=== PATIENT | female | born 1965 | race Caucasian/White ===

== ENCOUNTER 2020-11-27 12:28 | Emergency (ER) | payer BC ==
--- OUTSIDE RECORDS SUMMARY | 2020-11-27 12:32 | XMS REPORT | Continuity of Care Document ---
:1965 Author Organization [facility] t Address [address] [place] [address] Care Team Providers Name Role Phone Lab, Fam Pob I Attending Clinician Unavailable Doctor Unassigned, Name Attending Clinician Unavailable SASSARD Attending Clinician Unavailable Payers Payer Name Policy Type Policy Number Effective Date Expiration Date S ource Problems This patient has no known problems. Allergies, Adverse Reactions, Alerts Allergy Allergy Status Severity Reaction(s) Onset Inactive Treating Comm ents Source Name Type Date Date Clinician Penicill DA Active U 2017-05 [facility] ins 07-07 [place] 00:00: [facility] 00 [facility] Medications This patient has no known medications. Procedures This patient has no known procedures. Encounters Start End Encounter Admission Attending Care Care Encounter Source Date/Time Date/Time Type Type Clinicians Facility Department ID 2020-03-05 2020-03-05 Laboratory Lab, Adc [facility] [id number] 10:47:02 11:07:02 Only Fam Pob I Health [id number] [place] [id number] Professio [id number] nal [address] 2020-03-05 2020-03-05 Letter Doctor ANGELA [id number] 00:00:00 00:00:00 (Out) Unassigned, LISA [id number] [facility] [id number] 2019-12-02 2019-12-02 Outpatient [facility] [id number] [place] 00:00:00 00:00:00 EDUARDO [address] 2019-11-07 2019-11-07 Outpatient [facility] [id number] 00:00:00 00:00:00 EDUARDO [address] 2019-10-28 2019-10-28 [facility] [id number] 00:00:00 00:00:00 EDUARDO [address] 2019-10-28 2019-10-28 Outpatient [facility] [id number] [place] 00:00:00 00:00:00 EDUARDO [address] 2019-10-28 2019-10-28 Outpatient [facility] [id number] [place] 00:00:00 00:00:00 EDUARDO [address] 2019-10-28 2019-10-28 Outpatient [facility] [id number] 00:00:00 00:00:00 EDUARDO [address] Results This patient has no known results.
[2020-11-27 13:36] LABS: Urine Blood Negative (Negative); Urine Glucose Negative (Negative); Urine Protein Negative (Negative)
[2020-11-27 14:26] LABS: Protime INR 0.97
[2020-11-27 14:39] LABS: Absolute Lymphocytes (CBC) 1.3 K/uL (0.7-4.9); Basophils % 0.5 % (0-1.3); Hematocrit 40.9 % (36.0-45.0); Lymphocytes % 21.7 % (15.3-44.8); MPV 7.5 fL (7.6-11.3); RBC Red Blood Cell Count 4.65 M/uL (3.86-4.86)
[2020-11-27 15:02] LABS: ALT/SGPT 30 U/L (12-78); AST/SGOT 21 U/L (15-37); Albumin 4.2 g/dL (3.4-5.0); Alkaline Phosphatase 106 U/L (45-117); BUN Blood Urea Nitrogen 14 mg/dL (7-18); Bicarbonate 30 mmol/L (21-32); Bilirubin Direct < 0.1 mg/dL (0-0.2); Bilirubin Total 0.3 mg/dL (0.2-1.0); Glucose Level 131 mg/dL (74-106); Magnesium 2.1 mg/dL (1.8-2.4); NT PRO-BNP 58 pg/mL (<125); Potassium 3.7 mmol/L (3.5-5.1); Protein, Total 8.3 g/dL (6.4-8.2); Sodium Level 137 mmol/L (136-145); Thyroid Stimulating Hormone 0.364 uIU/mL (0.360-3.740); Troponin (Emerg Dept Use Only) < 0.02 ng/mL (0.0-0.045)
--- NOTE | 2020-11-27 15:33 | RAD REPORT ---
EXAM DESCRIPTION: Molly Single View11/27/2020 2:38 pm CLINICAL HISTORY: Chest pain COMPARISON: none FINDINGS: The lungs appear clear of acute infiltrate. The heart is normal size IMPRESSION: No acute abnormalities displayed
--- NOTE | 2020-11-27 18:24 | EDPHYS ---
Physician Documentation [facility] Name: Silke Huggins Age: 55 yrs Sex: Female : 1965 Arrival Date: 11/27/2020 Time: 12:31 Bed 14 Private MD: Antionette Ramírez K ED Physician Guido Almazan HPI: 11/27 14:05 This 55 yrs old Female presents to ER via Ambulatory with complaints of Blood pm1 Pressure Problem, Nausea, Dizziness. 14:05 The patient presents with dizziness, hot flashes, left jaw pain, nausea, blood pressure pm1 elevation. Onset: The symptoms/episode began/occurred 2 week(s) ago. Context: Unknown. Patient post menopausal for about 1 year. Modifying factors: The symptoms are alleviated by nothing, the symptoms are aggravated by nothing. Associated signs and symptoms: Pertinent negatives: abdominal pain, chest pain, diaphoresis, near-syncope, numbness, shortness of breath, syncope, tingling, vomiting. Severity of symptoms: in the emergency department the symptoms have improved Pain is currently a 0 / 10. Patient's baseline: Neuro: alert and fully oriented, Motor: no deficits, Ambulation: walks without assistance, Speech: normal. 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 - Social history:: Smoking status: Patient denies any tobacco usage or history of. Patient uses street drugs, marijuana. ROS: 14:05 Constitutional: Negative for fever, chills, and weight loss. pm1 14:05 Neck: Negative for injury, pain, and swelling, Cardiovascular: Negative for chest pain, palpitations, and edema, Respiratory: Negative for shortness of breath, cough, wheezing, and pleuritic chest pain, Abdomen/GI: Negative for abdominal pain, nausea, vomiting, diarrhea, and constipation, Back: Negative for injury and pain, MS/Extremity: Negative for injury and deformity, Skin: Negative for injury, rash, and discoloration. 14:05 Neuro: Positive for dizziness, Negative for headache, numbness, syncope, near syncope, tingling, weakness. 14:05 All other systems are negative. Exam: 14:05 Constitutional: This is a well developed, well nourished patient who is awake, alert, pm1 and in no acute distress. Head/Face: Normocephalic, atraumatic. 14:05 Neck: Trachea midline, no thyromegaly or masses palpated, and no cervical lymphadenopathy. Supple, full range of motion without nuchal rigidity, or vertebral point tenderness. No Meningismus. 14:05 Chest/axilla: Normal chest wall appearance and motion. Nontender with no deformity. No lesions are appreciated. 14:05 Back: No spinal tenderness. No costovertebral tenderness. Full range of motion. Skin: Warm, dry with normal turgor. Normal color with no rashes, no lesions, and no evidence of cellulitis. MS/ Extremity: Pulses equal, no cyanosis. Neurovascular intact. Full, normal range of motion. 14:05 Eyes: Exam is negative for acute changes, Extraocular movements: no acute changes, Conjunctiva: no acute changes, no injection. 14:05 ENT: Exam is negative for acute changes, Mouth: Lips: normal, Oral mucosa: normal, pink and intact, moist. 14:05 Cardiovascular: Exam negative for acute changes, Rate: normal, Rhythm: regular, Pulses: no pulse deficits are appreciated, Heart sounds: normal, normal S1and S2. 14:05 Respiratory: Exam negative for acute changes, respiratory distress, shortness of breath, Breath sounds: are clear throughout. 14:05 Abdomen/GI: Inspection: abdomen appears normal, Palpation: abdomen is soft and non-tender, in all quadrants. 14:05 Neuro: Exam negative for acute changes, Orientation: is normal, Mentation: is normal, Motor: is normal, moves all fours, Sensation: is normal, no obvious gross deficits. Vital Signs: 13:03 BP 146 / 102; Pulse 86; Resp 18; Temp 98.2; Pulse Ox 100% on R/A; Weight 102.51 kg; ph Height 5 ft. 3 in. (160.02 cm); 13:38 BP 113 / 99; Pulse 84; Resp 17; Pulse Ox 98% on R/A; tw2 15:02 BP 122 / 87; Pulse 74; Resp 17; Pulse Ox 98% on R/A; tw2 16:29 BP 130 / 88; Pulse 75; Resp 17; Pulse Ox 98% on R/A; tw2 18:10 BP 128 / 91; Pulse 63; Resp 17; Pulse Ox 99% on R/A; tw2 13:03 Body Mass Index 40.03 (102.51 kg, 160.02 cm) ph MDM: 13:35 Patient medically screened. pm1 18:17 Data reviewed: vital signs. Data interpreted: Pulse oximetry: on room air is 99 %. pm1 Interpretation: normal. Counseling: I had a detailed discussion with the patient and/or guardian regarding: the historical points, exam findings, and any diagnostic results supporting the discharge/admit diagnosis, radiology results, the need for outpatient follow up, to return to the emergency department if symptoms worsen or persist or if there are any questions or concerns that arise at home. 11/27 13:35 Order name: Urine --Ancillary (enter results) nc 11/27 13:35 Order name: Urine Dipstick-Ancillary; Complete Time: 15:11 EDOR 11/27 13:47 Order name: Basic Metabolic Panel; Complete Time: 15:11 pm11/27 13:47 Order name: CBC with Diff; Complete Time: 15:11 pm1 11/27 13:47 Order name: LFT's; Complete Time: 15:11 pm11/27 13:47 Order name: Magnesium; Complete Time: 15:11 pm11/27 13:47 Order name: NT PRO-BNP; Complete Time: 15:11 pm11/27 13:47 Order name: PT-INR; Complete Time: 15:11 pm11/27 13:47 Order name: Troponin (emerg Dept Use Only); Complete Time: 15:11 pm11/27 13:47 Order name: XRAY Chest (1 view); Complete Time: 15:38 pm1 11/27 13:47 Order name: EKG; Complete Time: 13:47 pm11/27 13:47 Order name: Cardiac monitoring; Complete Time: 14:11 pm11/27 13:47 Order name: TSH; Complete Time: 15:11 pm11/27 17:46 Order name: Troponin (emerg Dept Use Only); Complete Time: 18:17 tw2 11/27 13:47 Order name: EKG - Nurse/Tech; Complete Time: 14:11 pm1 11/27 13:47 Order name: IV Saline Lock; Complete Time: 14:11 pm1 11/27 13:47 Order name: Labs collected and sent; Complete Time: 14:11 pm1 11/27 13:47 Order name: O2 Per Protocol; Complete Time: 13:48 pm1 11/27 13:47 Order name: O2 Sat Monitoring; Complete Time: 13:48 pm1 Administered Medications: No medications were administered Disposition: 11/28 07:08 Co-signature as Attending Physician, Guido Almazan MD I agree with the assessment and kdr plan of care. Disposition Summary: 11/27/20 18:23 Discharge Ordered Location: Home pm1 Problem: new pm1 Symptoms: have improved pm1 Condition: Stable pm1 Diagnosis - Jaw pain pm1 - Anorexia - decreased appetite pm1 - Dizziness and giddiness pm1 - Essential (primary) hypertension pm1 Followup: pm1 - With: Emergency Department - When: As needed - Reason: Worsening of condition Followup: pm1 - With: Private Physician - When: 2 - 3 days - Reason: Recheck today's complaints, Continuance of care, Re-evaluation by your physician Discharge Instructions: - Discharge Summary Sheet pm1 - Dizziness pm1 - Hypertension, Adult pm1 - How to Take Your Blood Pressure, [id number] pm1 - DASH Eating Plan pm1 - Managing Your Hypertension pm1 Forms: - Medication Reconciliation Form pm1 - Thank You Letter pm1 - Antibiotic Education pm1 - Prescription Opioid Use pm1 Signatures: Dispatcher [employer] EDGuido Roe MD MD [facility] Kim Kearney RN RN ph Dima Abdul, MEHDI MEDICAL INSTRUMENT CABLE FABRICATOR pm1 Corrections: (The following items were deleted from the chart) 11/27 13:10 13:09 Allergies: No Known Allergies; ph ph 18:43 14:05 The patient presents with dizziness, hot flashes, left jaw pain, nausea, pm1 pm1
--- NOTE | 2020-11-27 18:24 | ER ---
Nurse's Notes [facility] Name: Silke Huggins Age: 55 yrs Sex: Female : 1965 Arrival Date: 11/27/2020 Time: 12:31 Bed 14 Private MD: Antionette Ramírez K Diagnosis: Jaw pain;Anorexia-decreased appetite;Dizziness and giddiness;Essential (primary) hypertension Presentation: 11/27 13:03 Chief complaint: Patient states: Episodes of dizziness, L jaw discomfort, BP ph fluctuations, nausea, loss of appetite, been happening for " a few week", denies fever, V/D. Coronavirus screen: Client denies travel out of the [place] in the last 14 days. At this time, the client does not indicate any symptoms associated with coronavirus-19. Ebola Screen: No symptoms or risks identified at this time. Initial Sepsis Screen: Does the patient meet any 2 criteria? No. Patient's initial sepsis screen is negative. Does the patient have a suspected source of infection? No. Patient's initial sepsis screen is negative. Risk Assessment: Do you want to hurt yourself or someone else? Patient reports no desire to harm self or others. Onset of symptoms was November 27, 2020. 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 - Social history:: Smoking status: Patient denies any tobacco usage or history of. Patient uses street drugs, marijuana. Screenin:17 Abuse screen: Denies threats or abuse. Nutritional screening: No deficits noted. tw2 Tuberculosis screening: No symptoms or risk factors identified. Fall Risk None identified. Assessment: 13:20 General: Appears in no apparent distress. obese, well groomed, Behavior is calm, tw2 cooperative, appropriate for age. Pain: Complains of pain in left jaw. Neuro: Level of Consciousness is awake, alert, obeys commands, Oriented to person, place, time, situation. Cardiovascular: Capillary refill Patient's skin is warm and dry. Respiratory: Airway is patent Respiratory effort is even, unlabored, Respiratory pattern is regular, symmetrical. GI: Abdomen is round non-distended, obese, Reports nausea. : No signs and/or symptoms were reported regarding the genitourinary system. EENT: No signs and/or symptoms were reported regarding the EENT system. Derm: No signs and/or symptoms reported regarding the dermatologic system. Musculoskeletal: Range of motion: intact in all extremities. 13:37 Reassessment: provider at bedside at this time. tw2 15:02 Reassessment: Patient appears in no apparent distress at this time. No changes from tw2 previously documented assessment. Patient and/or family updated on plan of care and expected duration. Pain level reassessed. Patient is alert, oriented x 3, equal unlabored respirations, skin warm/dry/pink. 16:29 Reassessment: Patient appears in no apparent distress at this time. No changes from tw2 previously documented assessment. Patient and/or family updated on plan of care and expected duration. Pain level reassessed. Patient is alert, oriented x 3, equal unlabored respirations, skin warm/dry/pink. 18:10 Reassessment: Patient appears in no apparent distress at this time. No changes from tw2 previously documented assessment. Patient and/or family updated on plan of care and expected duration. Pain level reassessed. Patient is alert, oriented x 3, equal unlabored respirations, skin warm/dry/pink. 18:29 Reassessment: provider at bedside at this time going over results. tw2 18:44 Reassessment: Patient appears in no apparent distress at this time. No changes from tw2 previously documented assessment. Patient and/or family updated on plan of care and expected duration. Pain level reassessed. Patient is alert, oriented x 3, equal unlabored respirations, skin warm/dry/pink. Vital Signs: 13:03 BP 146 / 102; Pulse 86; Resp 18; Temp 98.2; Pulse Ox 100% on R/A; Weight 102.51 kg; ph Height 5 ft. 3 in. (160.02 cm); 13:38 BP 113 / 99; Pulse 84; Resp 17; Pulse Ox 98% on R/A; tw2 15:02 BP 122 / 87; Pulse 74; Resp 17; Pulse Ox 98% on R/A; tw2 16:29 BP 130 / 88; Pulse 75; Resp 17; Pulse Ox 98% on R/A; tw2 18:10 BP 128 / 91; Pulse 63; Resp 17; Pulse Ox 99% on R/A; tw2 13:03 Body Mass Index 40.03 (102.51 kg, 160.02 cm) ph ED Course: 12:31 Patient arrived in ED. mr 12:31 Antionette Ramírez MD is Private Physician. mr 13:09 Triage completed. ph 13:10 Arm band placed on Patient placed in an exam room. Antipyretics given from triage as ph ordered by an ER provider. Antipyretics given from triage as ordered by an ER provider. 13:11 Placed in gown. Bed in low position. Adult w/ patient. chemicals distiller on. Pulse ox on. tw2 NIBP on. 13:17 Destiny Baker RN is Primary Nurse. tw2 13:22 Dima Abdul NP is PHCP. pm1 13:22 Guido Almazan MD is Attending Physician. pm1 14:11 Inserted saline lock: 20 gauge in left antecubital area, using aseptic technique. Blood tw2 collected. 14:38 XRAY Chest (1 view) In Process Unspecified. EDMS 17:55 Troponin (emerg Dept Use Only) Sent. tw2 18:43 No provider procedures requiring assistance completed. IV discontinued, intact, tw2 bleeding controlled, No redness/swelling at site. Pressure dressing applied. Administered Medications: No medications were administered Outcome: 18:23 Discharge ordered by MD. pm1 18:43 Discharged to home ambulatory. tw2 18:43 Condition: stable 18:43 Discharge instructions given to patient, Instructed on discharge instructions, follow up and referral plans. Demonstrated understanding of instructions, follow-up care. 18:44 Patient left the ED. tw2 Signatures: Dispatcher [employer] EDMA ClemensJaquelin nick Kim Kearney RN RN ph Dima Abdul NP ASSISTANT PROFESSOR OF SPANISH pm1 Destiny Baker RN RN tw2 Corrections: (The following items were deleted from the chart) 13:09 13:03 Chief complaint: ph ph 13:10 13:09 Allergies: No Known Allergies; ph ph
[2020-11-27 19:05] VITALS: TEMP 98.2
[2020-11-27 19:12] VITALS: BP 128/91; O2SAT 99
--- NOTE | 2020-11-28 10:42 | EKG ---
Test Date: 2020-11-27 Test Time: 14:01:46 Rib Trim Separator: TANNA MEASUREMENT RESULTS: Intervals: Rate: 72 HI: 128 QRSD: 76 QT: 372 QTc: 407 [place]: P: 47 HI: 128 QRS: 54 T: 73 INTERPRETIVE STATEMENTS: Normal sinus rhythm Nonspecific ST abnormality Abnormal ECG Compared to ECG 04/11/1998 12:50:00 ST (T wave) deviation now present Electronically Signed On 11-28-20 10:41:44 CDT by Scott Barba
== END 2020-11-27 18:44 | disposition home or self-care (01) ==
LOC: ER 12:28
DX: R68.84 Jaw pain (principal); R63.0 Anorexia; I10 Essential (primary) hypertension; Z88.0 Allergy status to penicillin
CPT/HCPCS: 36415; 71045; 80048; 80076; 81003; 81025; 83735; 83880; 84443; 84484; 85025; 85610; 93005; 99284

== ENCOUNTER 2021-01-31 06:50 | Emergency (ER) | payer BC ==
--- NOTE | 2021-01-31 07:44 | RAD REPORT ---
EXAM DESCRIPTION: Molly Single View01/31/2021 7:38 am CLINICAL HISTORY: sob COMPARISON: November 2020 FINDINGS: The lungs appear clear of acute infiltrate. The heart is normal size IMPRESSION: No acute abnormalities displayed
--- NOTE | 2021-01-31 11:23 | ER ---
Nurse's Notes [facility] Name: Silke Huggins Age: 55 yrs Sex: Female : 1965 Arrival Date: 01/31/2021 Time: 06:51 Bed 10 Private MD: Diagnosis: Coronavirus infection, unspecified Presentation: 01/31 06:57 Chief complaint: Patient states: SOB x 2 days. Coronavirus screen: Vaccine status: df1 Patient reports being unvaccinated. Client denies travel out of the [place] in the last 14 days. Client presents with at least one sign or symptom that may indicate coronavirus-19. Standard/surgical mask placed on the client. The client reports previous COVID testing was negative. Date of collection: January 25, 2021. Ebola Screen: Patient negative for fever greater than or equal to 101.5 degrees Fahrenheit, and additional compatible Ebola Virus Disease symptoms. Initial Sepsis Screen: Does the patient meet any 2 criteria? No. Patient's initial sepsis screen is negative. Risk Assessment: Do you want to hurt yourself or someone else? Patient reports no desire to harm self or others. Onset of symptoms was January 29, 2021. 06:57 Method Of Arrival: Ambulatory df1 06:57 Acuity: CECILE 4 df1 07:03 Note Pt states SOB x 2 days. Neg covid on 01/25/21. Other family at home are positive df1 Covid. 07:16 Initial Sepsis Screen: Does the patient have a suspected source of infection? No. es2 Patient's initial sepsis screen is negative. Triage Assessment: 07:16 Respiratory: Onset: The symptoms/episode began/occurred 2 days ago, the patient has es2 mild shortness of breath. BARGE CAPTAIN: 07:18 5, Full Term 3, Premature 0, 2, Living 3, LMP 05/11/2019 es2 Historical: - Allergies: 07:00 PENICILLINS; df1 - Home Meds: 07:00 metoprolol tartrate 50 mg Oral tab 1 tab once daily [Active]; candesartan 32 mg oral df1 tab 1 tab once daily [Active]; - PMHx: 07:00 Hypertensive disorder; Hypothyroidism; df1 - PSHx: 07:00 section; Shoulder; df1 - Immunization history:: Adult Immunizations up to date, Client reports having NOT received the Covid vaccine. - Social history:: Smoking status: Patient denies any tobacco usage or history of. Patient/guardian denies using alcohol, street drugs. Screenin:15 Abuse screen: Denies threats or abuse. Denies injuries from another. Nutritional es2 screening: No deficits noted. Tuberculosis screening: No symptoms or risk factors identified. Fall Risk Gait- Normal/Bed Rest/Wheelchair (0 pts). Assessment: 07:12 Reassessment: Patient and/or family updated on plan of care and expected duration. Pain es2 level reassessed. Patient is alert, oriented x 3, equal unlabored respirations, skin warm/dry/pink. Pt states she has not be able to sleep for the past 2 nights. Feels like she can't breath. Checked O2 at home, was 89% on RA. Denies getting COVID vaccine. Reports diarrhea. General: Appears obese, well developed, well nourished, Behavior is calm, cooperative, appropriate for age. Pain: Denies pain. Neuro: Level of Consciousness is awake, alert, obeys commands, Oriented to person, place, time, situation, Appropriate for age Gait is steady, Speech is normal. Cardiovascular:. Respiratory: Airway is patent Respiratory effort is even, Respiratory pattern is regular, symmetrical. GI: Reports diarrhea. : No signs and/or symptoms were reported regarding the genitourinary system. EENT: No signs and/or symptoms were reported regarding the EENT system. Derm: Skin is intact. Musculoskeletal: No signs and/or symptoms reported regarding the musculoskeletal system. 07:18 Respiratory: Breath sounds are clear. es2 11:33 Cardiovascular: Rhythm is regular. es2 Vital Signs: 06:57 BP 115 / 88; Pulse 85; Resp 20; Temp 97.9; Pulse Ox 100% on R/A; Weight 101.6 kg; df1 Height 5 ft. 4 in. (162.56 cm); Pain 0/10; 07:15 BP 113 / 101; Pulse 84; Resp 20; Pulse Ox 98% on R/A; es2 10:59 BP 101 / 76; Pulse 71; Resp 18; Pulse Ox 98% on R/A; es2 06:57 Body Mass Index 38.45 (101.60 kg, 162.56 cm) df1 ED Course: 06:51 Patient arrived in ED. bp1 07:00 Triage completed. df1 07:00 [place] N[facility]-C [facility]. kb 07:00 Guido Almazan MD is Attending Physician. kb 07:12 Tammy Lerma, RN is Primary Nurse. es2 07:16 Arm band placed on. es2 07:16 Patient has correct armband on for positive identification. Bed in low position. Call es2 light in reach. 07:17 No provider procedures requiring assistance completed. Patient did not have IV access es2 during this emergency room visit. 07:38 Chest Single View XRAY In Process Unspecified. EDMS Administered Medications: No medications were administered Outcome: 11:23 Discharge ordered by MD. kb 11:34 Discharged to home ambulatory. es2 11:34 Condition: stable 11:34 Discharge instructions given to patient, Demonstrated understanding of instructions. 11:34 Patient left the ED. es2 Signatures: Dispatcher [employer] EDMS Virginia Nuno FNP-C HOUSEKEEPING STAFF-Cassy Rivera bp1 Nica Gonzales df1 Tammy Lerma, RN RN es2 Corrections: (The following items were deleted from the chart) 07:03 07:00 Home Meds: None; df1 df1 08:16 07:12 CORONAVIRUS+ drawn and sent. es2 EDMS
--- NOTE | 2021-01-31 11:23 | EDPHYS ---
Physician Documentation [facility] Name: Silke Huggins Age: 55 yrs Sex: Female : 1965 Arrival Date: 01/31/2021 Time: 06:51 Bed 10 Private MD: ED Physician Guido Almazan HPI: 01/31 07:09 This 55 yrs old Female presents to ER via Ambulatory with complaints of kb Breathing Difficulty. 07:09 The patient has not recently seen a physician. kb 07:10 The patient has shortness of breath at rest. Onset: The symptoms/episode began/occurred kb 2 day(s) ago. Duration: The symptoms are continuous. The patient's shortness of breath is aggravated by nothing, is alleviated by nothing. Associated signs and symptoms: The patient has no apparent associated signs or symptoms. Severity of symptoms: At their worst the symptoms were mild moderate in the emergency department the symptoms are unchanged. The patient has not experienced similar symptoms in the past. Pt states she has had shortness of breath and it causes her not to be able to sleep. States her family all have COVID. 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 - Social history:: Smoking status: Patient denies any tobacco usage or history of. Patient/guardian denies using alcohol, street drugs. ROS: 07:09 Constitutional: Negative for fever, chills, and weight loss. kb 07:09 Respiratory: Positive for shortness of breath, Negative for cough, dyspnea on exertion, hemoptysis, orthopnea, pleurisy, sputum production, wheezing. 07:09 All other systems are negative. Exam: 07:09 Constitutional: This is a well developed, well nourished patient who is awake, alert, kb and in no acute distress. Head/Face: Normocephalic, atraumatic. ENT: Moist Mucous membranes Cardiovascular: Regular rate and rhythm with a normal S1 and S2. No gallops, murmurs, or rubs. No pulse deficits. Respiratory: Respirations even and unlabored. No increased work of breathing, no retractions or nasal flaring. Skin: Warm, dry with normal turgor. Normal color. MS/ Extremity: Pulses equal, no cyanosis. Neurovascular intact. Full, normal range of motion. Neuro: Awake and alert, GCS 15, oriented to person, place, time, and situation. Moves all extremities. Normal gait. Psych: Awake, alert, with orientation to person, place and time. Behavior, mood, and affect are within normal limits. Vital Signs: 06:57 BP 115 / 88; Pulse 85; Resp 20; Temp 97.9; Pulse Ox 100% on R/A; Weight 101.6 kg; df1 Height 5 ft. 4 in. (162.56 cm); Pain 0/10; 07:15 BP 113 / 101; Pulse 84; Resp 20; Pulse Ox 98% on R/A; es2 10:59 BP 101 / 76; Pulse 71; Resp 18; Pulse Ox 98% on R/A; es2 06:57 Body Mass Index 38.45 (101.60 kg, 162.56 cm) df1 MDM: 07:05 Patient medically screened. kb 07:09 Data reviewed: vital signs, nurses notes. Data interpreted: Pulse oximetry: on room air kb is 100 %. Interpretation: normal. 11:22 Counseling: I had a detailed discussion with the patient and/or guardian regarding: the kb historical points, exam findings, and any diagnostic results supporting the discharge/admit diagnosis, lab results, the need for outpatient follow up, a family practitioner, to return to the emergency department if symptoms worsen or persist or if there are any questions or concerns that arise at home. 11:32 ED course: Ad offered, pt refuses. kb 01/31 11:24 Order name: SARS-COV-2 RT PCR; Complete Time: 11:32 EDMS 01/31 07:01 Order name: Chest Single View XRAY; Complete Time: 07:46 kb Administered Medications: No medications were administered Disposition: 17:05 Co-signature as Attending Physician, Guido Almazan MD I agree with the assessment and kdr plan of care. Disposition Summary: 01/31/21 11:23 Discharge Ordered Location: Home kb Condition: Stable kb Diagnosis - Coronavirus infection, unspecified kb Followup: kb - With: Emergency Department - When: As needed - Reason: Worsening of condition Followup: kb - With: Private Physician - When: 2 - 3 days - Reason: Recheck today's complaints, Continuance of care, Re-evaluation by your physician Discharge Instructions: - Discharge Summary Sheet kb - COVID-19 kb - COVID-19 Frequently Asked Questions kb - 10 Things You Can Do to Manage Your COVID-19 Symptoms at Home - [facility] kb Forms: - Medication Reconciliation Form kb - Thank You Letter kb - Antibiotic Education kb - Prescription Opioid Use kb Signatures: Dispatcher [employer] EDMS Virginia Nuno, DRAFTER DIRECTIONAL SURVEY-C DRAFTER DIRECTIONAL SURVEY-Guido Irizarry MD MD [facility] Nica Gonzales df1 Corrections: (The following items were deleted from the chart) 07:03 07:00 Home Meds: None; df1 df1 08:16 07:01 CORONAVIRUS+MR.LAB.BRZ ordered. EDMS EDMS
[2021-01-31 11:40] VITALS: TEMP 97.9
[2021-01-31 11:42] VITALS: O2SAT 98
[2021-01-31 11:43] VITALS: BP 101/76
== END 2021-01-31 11:34 | disposition home or self-care (01) ==
LOC: ER 06:50
DX: U07.1 COVID-19 (principal); I10 Essential (primary) hypertension; E03.9 Hypothyroidism, unspecified; Z88.0 Allergy status to penicillin
CPT/HCPCS: 71045; 99283; U0003

== ENCOUNTER 2021-02-01 15:48 | Emergency (ER) | payer BC ==
[2021-02-01 17:20] LABS: Absolute Lymphocytes (CBC) 2.1 K/uL (0.7-4.9); Basophils % 0.5 % (0-1.3); Hematocrit 39.7 % (36.0-45.0); Lymphocytes % 30.9 % (15.3-44.8); MPV 7.7 fL (7.6-11.3); RBC Red Blood Cell Count 4.59 M/uL (3.86-4.86)
[2021-02-01 17:41] LABS: Potassium 3.5 mmol/L (3.5-5.1)
[2021-02-01] MEDS ORDERED: CASIRIVIMAB/IMDEVIMAB 10 ML VIAL ONE (17:49)
[2021-02-01] MEDS ORDERED: NA CHLORIDE 0.9% 250 ML ONE (18:06)
--- NOTE | 2021-02-01 20:25 | ER ---
Nurse's Notes [facility] Name: Silke Huggins Age: 55 yrs Sex: Female : 1965 Arrival Date: 02/01/2021 Time: 15:51 Bed 13 Private MD: Diagnosis: Coronavirus infection, unspecified Presentation: 02/01 16:03 Chief complaint: Patient states: patient states she was seen here yesterday, where she ap3 was dx with COVID. Patient states she was offered "the infusion" but refused. However after research, and talking with her dr she wants it now. Coronavirus screen: Client reports previous positive COVID test result. Date of collection: January 31, 2021. Ebola Screen: No symptoms or risks identified at this time. Initial Sepsis Screen: Does the patient meet any 2 criteria? No. Patient's initial sepsis screen is negative. Does the patient have a suspected source of infection? Yes: Productive cough/pneumonia. Risk Assessment: Do you want to hurt yourself or someone else? Patient reports no desire to harm self or others. Onset of symptoms was January 25, 2021. 16:03 Method Of Arrival: Ambulatory ap3 16:03 Acuity: CECILE 3 ap3 Triage Assessment: 16:07 General: Appears. ap3 16:07 General: Appears in no apparent distress. comfortable, Behavior is calm, cooperative, ap3 appropriate for age. Pain: Denies pain. Neuro: Level of Consciousness is awake, alert, obeys commands, Oriented to person, place, time, situation, Appropriate for age. Cardiovascular: Capillary refill < 3 seconds Patient's skin is warm and dry. Respiratory: Airway is patent Respiratory effort is even, unlabored, Respiratory pattern is regular, symmetrical, Parent/caregiver reports the patient having cough that is productive. GI: Parent/caregiver reports the patient having diarrhea, nausea. 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 - Social history:: Smoking status: Patient denies any tobacco usage or history of. Patient uses alcohol, occasionally. Screenin:07 Abuse screen: Denies threats or abuse. Nutritional screening: No deficits noted. ap3 Tuberculosis screening: No symptoms or risk factors identified. 16:09 Fall Risk None identified. No fall in past 12 months (0 pts). No secondary diagnosis (0 ap3 pts). No IV (0 pts). Ambulatory Aid- None/Bed Rest/Nurse Assist (0 pts). Gait- Normal/Bed Rest/Wheelchair (0 pts) Mental Status- Oriented to own ability (0 pts). Total Mckeon Fall Scale indicates No Risk (0-24 pts). Assessment: 19:17 Reassessment: Regem-cov finish, pt to be observe for an addt'l 1 hr. no side effects oh reported. General: Appears comfortable, Behavior is calm, Reports requesting covid immunoglobin, positive covid test yesterday. Vital Signs: 16:00 BP 108 / 72; Pulse 73; Resp 17; Temp 97.9(O); Pulse Ox 100% ; oh 16:03 BP 108 / 85; Pulse 88; Resp 19; Temp 97.7; Pulse Ox 100% on R/A; Weight 101.6 kg; ap3 Height 5 ft. 3 in. (160.02 cm); 19:16 BP 126 / 69; Pulse 65; Resp 17; Temp 98.1; Pulse Ox 99% ; oh 20:21 BP 98 / 64; Pulse 66; Resp 18; Temp 97.9; Pulse Ox 100% ; Pain 0/10; sj1 16:03 Body Mass Index 39.68 (101.60 kg, 160.02 cm) ap3 ED Course: 15:51 Patient arrived in ED. mr 16:06 Triage completed. ap3 16:09 Arm band placed on left wrist. ap3 16:10 Patient has correct armband on for positive identification. Pulse ox on. NIBP on. ap3 16:11 Guido Almazan MD is Attending Physician. kdr 16:53 Megan Cordoba, JASON is Primary Nurse. oh 19:05 Attending Physician role handed off by Guido Almazan MD [facility] 19:05 Sourav Knight MD is Attending Physician. [facility] 20:21 No provider procedures requiring assistance completed. 1 20:38 IV discontinued, intact, bleeding controlled, No redness/swelling at site. rust Administered Medications: 18:00 Drug: Casirivimab ([id number]) (1 of 2) (EUA) 600 mg Route: IV; Rate: calculated rate; oh Site: left antecubital; 20:40 Follow up: Response: No adverse reaction; IV Status: Completed infusion rust Outcome: 20:25 Discharge ordered by . [facility] 20:38 Discharged to home rust 20:38 Condition: stable 20:38 Discharge instructions given to Instructed on discharge instructions, follow up and referral plans. 20:40 Patient left the ED. rust Signatures: Guido Almazan MD MD [facility] Jaquelin Clemens Amanda, RN RN 3 Sourav Knight MD MD [facility] Kaci Palacios RN RN 1 Megan Cordoba RN RN la
--- NOTE | 2021-02-01 20:25 | EDPHYS ---
Physician Documentation [facility] Name: Silke Huggins Age: 55 yrs Sex: Female : 1965 Arrival Date: 02/01/2021 Time: 15:51 Bed 13 Private MD: BENITO Physician Sourav Knight HPI: 02/01 18:09 This 55 yrs old Female presents to ER via Ambulatory with complaints of kdr Infusion. 18:09 Patient was seen here yesterday for shortness of breath and Covid symptoms. She was kdr diagnosed with Covid however she time was and declined administration of the remdesivir. Subsequently today, she discussed the situation with her primary care physician and he recommended that she go ahead and get the infusion. She presented back here today requesting the remdesivir infusion. . 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 - Social history:: Smoking status: Patient denies any tobacco usage or history of. Patient uses alcohol, occasionally. ROS: 18:09 Constitutional: Negative for fever, chills, and weight loss, Eyes: Negative for injury, kdr pain, redness, and discharge, ENT: Negative for injury, pain, and discharge, Neck: Negative for injury, pain, and swelling, Cardiovascular: Negative for chest pain, palpitations, and edema, Abdomen/GI: Negative for abdominal pain, nausea, vomiting, diarrhea, and constipation, Back: Negative for injury and pain, : Negative for injury, bleeding, discharge, and swelling, MS/Extremity: Negative for injury and deformity, Skin: Negative for injury, rash, and discoloration, Neuro: Negative for headache, weakness, numbness, tingling, and seizure activity. 18:09 Abdomen/GI: Positive for She had a couple episodes of diarrhea 2 days ago but took Imodium and no longer has those issues. Exam: 18:09 Constitutional: This is a well developed, well nourished patient who is awake, alert, kdr and in no acute distress. Head/Face: Normocephalic, atraumatic. Eyes: Pupils equal round and reactive to light, extra-ocular motions intact. Lids and lashes normal. Conjunctiva and sclera are non-icteric and not injected. Cornea within normal limits. Periorbital areas with no swelling, redness, or edema. Neck: Trachea midline, no thyromegaly or masses palpated, and no cervical lymphadenopathy. Supple, full range of motion without nuchal rigidity, or vertebral point tenderness. No Meningismus. Chest/axilla: Normal chest wall appearance and motion. Nontender with no deformity. No lesions are appreciated. Cardiovascular: Regular rate and rhythm with a normal S1 and S2. No gallops, murmurs, or rubs. Normal PMI, no JVD. No pulse deficits. Respiratory: Lungs have equal breath sounds bilaterally, clear to auscultation and percussion. No rales, rhonchi or wheezes noted. No increased work of breathing, no retractions or nasal flaring. Abdomen/GI: Soft, non-tender, with normal bowel sounds. No distension or tympany. No guarding or rebound. No evidence of tenderness throughout. Back: No spinal tenderness. No costovertebral tenderness. Full range of motion. Skin: Warm, dry with normal turgor. Normal color with no rashes, no lesions, and no evidence of cellulitis. MS/ Extremity: Pulses equal, no cyanosis. Neurovascular intact. Full, normal range of motion. Neuro: Awake and alert, GCS 15, oriented to person, place, time, and situation. Cranial nerves II-XII grossly intact. Motor strength 5/5 in all extremities. Sensory grossly intact. Cerebellar exam normal. Normal gait. Psych: Awake, alert, with orientation to person, place and time. Behavior, mood, and affect are within normal limits. Vital Signs: 16:00 BP 108 / 72; Pulse 73; Resp 17; Temp 97.9(O); Pulse Ox 100% ; oh 16:03 BP 108 / 85; Pulse 88; Resp 19; Temp 97.7; Pulse Ox 100% on R/A; Weight 101.6 kg; ap3 Height 5 ft. 3 in. (160.02 cm); 19:16 BP 126 / 69; Pulse 65; Resp 17; Temp 98.1; Pulse Ox 99% ; oh 20:21 BP 98 / 64; Pulse 66; Resp 18; Temp 97.9; Pulse Ox 100% ; Pain 0/10; sj1 16:03 Body Mass Index 39.68 (101.60 kg, 160.02 cm) ap3 MDM: 18:09 Data reviewed: vital signs, nurses notes, lab test result(s), radiologic studies. kdr Counseling: I had a detailed discussion with the patient and/or guardian regarding: the historical points, exam findings, and any diagnostic results supporting the discharge/admit diagnosis, lab results, radiology results. 20:23 Differential Diagnosis sepsis, flu, COVID. Data interpreted: Pulse oximetry: on room [facility] air is 100 %. Interpretation: normal. Response to treatment: the patient's symptoms have markedly improved after treatment. 20:25 Patient medically screened. [facility] 02/01 16:44 Order name: CBC with Diff; Complete Time: 17:45 [facility] 02/01 16:44 Order name: Chem 7; Complete Time: 19:05 [facility] 02/01 16:44 Order name: COVID-19 : Document "Date of Symptom Onset" if Symptomatic. kdr Administered Medications: 18:00 Drug: Casirivimab ([id number]) (1 of 2) (EUA) 600 mg Route: IV; Rate: calculated rate; oh Site: left antecubital; 20:40 Follow up: Response: No adverse reaction; IV Status: Completed infusion sj1 Disposition Summary: 02/01/21 20:25 Discharge Ordered Location: Home [facility] Problem: an ongoing problem [facility] Symptoms: have improved [facility] Condition: Stable [facility] Diagnosis - Coronavirus infection, unspecified 7 Followup: [facility] - With: Private Physician - When: 1 - 2 days - Reason: Worsening of condition, Recheck today's complaints, Continuance of care, Re-evaluation by your physician Discharge Instructions: - Discharge Summary Sheet 7 - COVID-19 [facility] - COVID-19 Frequently Asked Questions [facility] - 10 Things You Can Do to Manage Your COVID-19 Symptoms at Home - [place] [address] Forms: - Medication Reconciliation Form 7 - Thank You Letter 7 - Antibiotic Education mh7 - Prescription Opioid Use [facility] Signatures: Dispatcher [employer] Guido Farrar MD MD [facility] Sarah Hutchison RN RN ap3 Sourav Knight MD MD 7 Megan Cordoba, JASON RN oh Kaci Palacios RN sj1
[2021-02-01 21:06] VITALS: BP 98/64; TEMP 97.9; O2SAT 100
== END 2021-02-01 20:40 | disposition home or self-care (01) ==
LOC: ER 15:48
DX: U07.1 COVID-19 (principal); I10 Essential (primary) hypertension; E03.9 Hypothyroidism, unspecified; Z88.0 Allergy status to penicillin
CPT/HCPCS: 96365; 85025; 80048; 36415; 99283; 96366; J7050